=== PATIENT | female | born 1975 | race Caucasian/White ===

== ENCOUNTER 2021-12-18 08:43 | Outpatient (CLI) | payer OTHER ==
[2021-12-18 10:18] LABS: #Basophils 0.1 10x3/uL (0.0-0.2); #Eosinphils 0.1 10x3/uL (0.0-0.5); #Monocytes 0.6 10x3/uL (0.0-1.1); #Neutrophils 3.2 10x3/uL (1.5-8.4); %Basophils 1.3 % (0.0-2.0); %Eosinophils 2.6 % (0.0-6.0); %Lymphocytes 25.3 % (18.0-47.0); %Monocytes 11.6 % (0.0-10.0); %Neutrophils 58.8 % (40.0-75.0); Hemoglobin 14.6 g/dL (12.0-15.5); Mean Corpuscular HGB CONC 34.1 g/dL (32.0-36.0); Mean Corpuscular Hemoglobin 31.9 pg (27.0-33.0); Mean Corpuscular Volume 93.7 fl (81.6-98.3); Mean Platelet Volume 10.4 fl (7.4-10.4); Platelet Count 321 10x3/uL (150-450); RBC Distribution Width 11.9 % (11.5-14.5); Red Blood Cell (RBC) Count 4.57 10x6/uL (3.90-5.03); White Blood Cell (WBC) Count 5.4 10x3/uL (3.5-10.5)
== END 2021-12-18 08:44 | disposition home or self-care (01) ==
LOC: LABBT 08:43
PROVIDERS: ATTEND Orthopaedic Surgery Hand Surgery
DX: Z01.812 Encounter for preprocedural laboratory examination (principal); D48.7 Neoplasm of uncertain behavior of other specified sites; Z20.822 Contact with and (suspected) exposure to COVID-19
CPT/HCPCS: 85025; U0003; U0005

== ENCOUNTER 2021-12-20 10:24 | Day surgery (SDC) | payer OTHER ==
[2021-12-18 12:12] VITALS: BMI 42.0
[2021-12-20] MEDS ORDERED: Betamet Acet/Betamet Na Ph 30 MG/5 ML VIAL ONE (10:52)
[2021-12-20] MEDS ORDERED: Bupivacaine PF 0.5% 30 ML VIAL ONE (10:52)
[2021-12-20] MEDS ORDERED: Neomycin-Polymyxin 1 ML AMP ONE (10:52)
[2021-12-20] MEDS ORDERED: Bacitracin Zinc Ointment 30 gm TUBE ONE (10:52)
[2021-12-20] MEDS ORDERED: CEFAZOLIN 2 GM VIAL ONE (12:50)
[2021-12-20] MEDS ORDERED: Sodium Chloride 0.9% 100 ML ONE (12:50)
[2021-12-20] MEDS ORDERED: Midazolam HCl 2 mg/2 ml Vial ONE (13:04)
[2021-12-20] MEDS ORDERED: Dexamethasone 20 MG/5 ML VIAL ONE (13:17)
[2021-12-20] MEDS ORDERED: PROPOFOL 200 MG/20 ML VIAL ONE (13:17)
[2021-12-20] MEDS ORDERED: fentaNYL Citrate/PF 100 MCG/2 ML SYRINGE ONE (13:34)
[2021-12-20] MEDS ORDERED: Fentanyl 100 MCG/2 ML VIAL ONE ×3 (13:56→14:27)
[2021-12-20] MEDS ORDERED: Meperidine HCl/PF 25 MG/ML VIAL ONE (14:05)
[2021-12-20] MEDS ORDERED: Ketorolac Tromethamine 30 MG/ML VIAL ONE (14:11)
== END 2021-12-20 15:56 | disposition home or self-care (01) ==
LOC: SDC 10:24
PROVIDERS: ATTEND Orthopaedic Surgery Hand Surgery
PROC: 0LB70ZZ Excision of Right Hand Tendon, Open Approach (ICD-10-PCS; principal; 2021-12-20)
DX: D48.1 Neoplasm of uncertain behavior of connective and other soft tissue (principal); E78.5 Hyperlipidemia, unspecified; E03.9 Hypothyroidism, unspecified; Z79.890 Hormone replacement therapy; Z79.899 Other long term (current) drug therapy; Z88.2 Allergy status to sulfonamides
CPT/HCPCS: 88307; J0702; J1100; J1885; J2175; J2250; J2704; J3010; J3490; S0020

== ENCOUNTER 2024-05-06 09:05 | Outpatient (CLI) | payer OTHER | END 2024-05-06 09:06 | disposition home or self-care (01) | LOC: BICRAD 09:05 | PROVIDERS: ATTEND Specialist | DX: M54.50 Low back pain, unspecified (principal); M47.816 Spondylosis without myelopathy or radiculopathy, lumbar region | CPT/HCPCS: 72100 ==